=== PATIENT | male | born 1960 | race Caucasian/White ===

== ENCOUNTER 2021-02-17 23:03 | Emergency (ER) | payer SELFPAY ==
[2021-02-17 23:14] VITALS: BP 133/88; PULSE 77; TEMP 98.1; BMI 26.9
[2021-02-17] MEDS ORDERED: ACYCLOVIR 400 MG TABLET PO ONE (23:59)
[2021-02-17] MEDS ORDERED: predniSONE 20 MG TABLET (UD) PO ONE (23:59)
[2021-02-18] MEDS ORDERED: ACYCLOVIR 200 MG CAPSULE ONE (00:08)
[2021-02-18] MEDS ORDERED: predniSONE 20 MG TABLET (UD) ONE (00:08)
== END 2021-02-18 01:05 | disposition home or self-care (01) ==
LOC: JER 23:03
DX: G51.0 Bell's palsy (principal)
CPT/HCPCS: 36415; 86618; 99283-25